=== PATIENT | female | born 1950 | race Caucasian/White ===

== ENCOUNTER 2017-07-11 07:46 | Emergency (ER) | payer MEDICARE, OTHER ==
[~2017-07-11] VITALS: Ht 172.7 cm; Wt 92.5 kg
[~2017-07-11 07:46] MED LIST: DOCU-131 PO; FERR1TAB2 PO; INSU100V12 SC; LISI5TAB7 PO; TRAM50TA2 PO
[2017-07-11 07:48] VITALS: BP 153/77
[2017-07-11] MEDS ORDERED: CLINDAMYCIN 150 MG/ML, 6ML IM ONE (10:00)
[2017-07-11] MEDS ORDERED: CLINDAMYCIN 150 MG/ML, 6ML ONE (10:12)
== END 2017-07-11 11:30 | disposition home or self-care (01) ==
LOC: ED 09:17
DX: S60.221A Contusion of right hand, initial encounter (principal); I10 Essential (primary) hypertension; E11.9 Type 2 diabetes mellitus without complications; Z87.891 Personal history of nicotine dependence; W01.0XXA Fall on same level from slipping, tripping and stumbling without subsequent striking against object, initial encounter; Y93.89 Activity, other specified; Y99.8 Other external cause status; Y92.89 Other specified places as the place of occurrence of the external cause
CPT/HCPCS: 29125; 96372

== ENCOUNTER 2017-10-12 10:55 | Inpatient (IN) | payer MEDICARE, OTHER ==
[~2017-10-12] VITALS: Ht 172.7 cm; Wt 91.4 kg
[2017-10-12] MEDS ORDERED: PRAV10TA2 PO (11:31)
[2017-10-12] MEDS ORDERED: AMLO10TA2 PO (11:32)
[2017-10-12] MEDS ORDERED: ASPIRIN 81 MG TABLET CHEW ONE (11:38)
[2017-10-12] MEDS ORDERED: NITROGLYCERIN SINGLE TAB 0.4 MG SL ONE ×2 (11:38→12:31)
[2017-10-12] MEDS: NITROGLYCERIN SINGLE TAB 0.4 MG SL PRN ×2 (11:45→12:33)
[2017-10-12] MEDS ORDERED: ASPIRIN 81 MG TABLET CHEW PO ONE (12:00)
[2017-10-12] MEDS ORDERED: SODIUM CHLORIDE FLUSH 10ML SYR IVF ONE (12:00)
[2017-10-12 12:07] LABS: BASOPHILS # (AUTO) 0.03 x10^3/uL (0-0.1); BASOPHILS % (AUTO) 0 % (0-1); EOSINOPHILS # (AUTO) 0.25 x10^3/uL (0-0.4); EOSINOPHILS % (AUTO) 3 % (1-7); LYMPHOCYTES % (AUTO) 18 % (22-44); MD NO; MEAN CORPUSCULAR HEMOGLOBIN 26.2 pg (27.0-34.8); MEAN CORPUSCULAR HGB CONC 32.9 g/dL (32.4-35.8); MEAN CORPUSCULAR VOLUME 79.6 fL (80-100); MEAN PLATELET VOLUME 8.4 fL (7.4-10.4); MONOCYTES # (AUTO) 0.43 x10^3/uL (0.2-0.8); MONOCYTES % (AUTO) 6 % (2-9); NEUTROPHILS # (AUTO) 5.28 x10^3/uL (1.8-6.8); NEUTROPHILS % (AUTO) 72 % (42-75); PLATELET COUNT 298 x10^3/uL (130-400); RED CELL DISTRIBUTION WIDTH 13.1 % (9.6-15.2)
[2017-10-12 12:14] LABS: INTERNATIONAL NORMALIZED RATIO 1.05 (0.93-1.1); PROTHROMBIN TIME 10.9 Seconds (9.6-11.5)
[2017-10-12 12:17] LABS: ALBUMIN 3.9 g/dL (3.4-5.0); ANION GAP 7 mmol/L (5-15); CALCIUM 8.7 mg/dL (8.5-10.1); CHLORIDE 111 mmol/L (98-107); CREATININE 0.99 mg/dL (0.55-1.02)
[2017-10-12] MEDS ORDERED: SODIUM CHLORIDE FLUSH 10ML SYR IVF PRN (13:00)
[2017-10-12 15:46] VITALS: BP 126/80
[2017-10-12] MEDS ORDERED: DOCUSATE 100 MG CAPSULE PO PRN (16:00)
[2017-10-12] MEDS ORDERED: hydrALAzine 20 MG/ML, 1ML IVPush PRN (16:00)
[2017-10-12] MEDS ORDERED: POLYETHYLENE GLYCOL 17 GM PACKET PO PRN (16:00)
[2017-10-12] MEDS: INSULIN LISPRO 100 UNITS/ML, PEN SQ-INSULIN SCH ×2 (16:00→21:08)
[2017-10-12] MEDS ORDERED: morphine SULFATE 10 MG/ML, 1ML IVPush PRN (16:00)
[2017-10-12] MEDS ORDERED: HYDROcodone/APAP 5/325 TABLET PO PRN (16:00)
[2017-10-12] MEDS ORDERED: ONDANSETRON 2MG/ML, 2ML IVPush PRN (16:00)
[2017-10-12 16:30] LABS: FREE T4 (FREE THYROXINE) 1.29 ng/dL (0.76-1.46); THYROID STIMULATING HORMONE 1.31 mIU/L (0.358-3.740)
[2017-10-12 16:31] LABS: HEMOGLOBIN A1C 6.6 % (4.2-6.3)
[2017-10-12] MEDS: METOPROLOL TARTRATE 25 MG TABLET PO SCH (17:45)
[2017-10-12] MEDS: ENOXAPARIN 40 MG/0.4 ML SQ SCH (17:45)
[2017-10-12] MEDS ORDERED: ZOLP5TAB6 PO (17:49)
[2017-10-12] MEDS ORDERED: GABA300C10 PO (17:49)
[2017-10-12 20:04] VITALS: BP 120/77
[2017-10-12 20:10] LABS: TROPONIN I < 0.015 ng/mL (0.000-0.045)
[2017-10-12] MEDS ORDERED: ATORVASTATIN 40 MG TABLET PO SCH (21:00)
[2017-10-12] MEDS ORDERED: ZOLPIDEM 5MG TABLET PO PRN (22:30)
[2017-10-13 02:16] VITALS: BP 105/63
[2017-10-13 05:08] LABS: TROPONIN I < 0.015 ng/mL (0.000-0.045)
[2017-10-13] MEDS: METOPROLOL TARTRATE 25 MG TABLET PO SCH ×2 (05:59→17:21)
[2017-10-13] MEDS ORDERED: ASPIRIN 81 MG TABLET EC PO SCH (06:00)
[2017-10-13 08:08] VITALS: BP 104/67
[2017-10-13] MEDS: INSULIN LISPRO 100 UNITS/ML, PEN SQ-INSULIN SCH ×3 (08:14→16:27)
[2017-10-13] MEDS ORDERED: REGADENOSON 0.4 MG/5 ML SYRINGE ONE (11:25)
[2017-10-13 15:42] VITALS: BP 131/70
[2017-10-13] MEDS: ENOXAPARIN 40 MG/0.4 ML SQ SCH (16:00)
[2017-10-13] MEDS ORDERED: METO25TA35 PO (16:38)
[2017-10-13] MEDS ORDERED: ASPI-621 PO (16:40)
== END 2017-10-13 19:00 | disposition home or self-care (01) | DRG 311 ==
LOC: ED 12:00 → EDIP 12:44 → 5SO 14:47
PROVIDERS: ADMIT Internal Medicine; ATTEND Internal Medicine
DX: I20.9 Angina pectoris, unspecified (principal); I11.0 Hypertensive heart disease with heart failure; I50.30 Unspecified diastolic (congestive) heart failure; E78.5 Hyperlipidemia, unspecified; E78.00 Pure hypercholesterolemia, unspecified; E11.9 Type 2 diabetes mellitus without complications; D50.9 Iron deficiency anemia, unspecified; I45.2 Bifascicular block; J45.909 Unspecified asthma, uncomplicated; M19.90 Unspecified osteoarthritis, unspecified site; Z79.82 Long term (current) use of aspirin; Z80.0 Family history of malignant neoplasm of digestive organs; Z85.43 Personal history of malignant neoplasm of ovary; Z86.010 Personal history of colon polyps; Z90.49 Acquired absence of other specified parts of digestive tract; Z91.14 Patient's other noncompliance with medication regimen; Z87.891 Personal history of nicotine dependence; Z90.710 Acquired absence of both cervix and uterus; Z80.7 Family history of other malignant neoplasms of lymphoid, hematopoietic and related tissues; Z85.038 Personal history of other malignant neoplasm of large intestine; Z88.0 Allergy status to penicillin; Z88.1 Allergy status to other antibiotic agents; Z79.899 Other long term (current) drug therapy
CPT/HCPCS: 36415; 71045; 78452; 80048; 82040; 82962; 83036; 83880; 84439; 84443; 84484; 85025; 85610; 85730; 93005; 93017; 93306; 99285; J1650; J2785; A9502; C9898; J1815

== ENCOUNTER → 2019-06-19 | Outpatient (CLI) | payer MEDICARE, OTHER ==
[~2019-06-19] MED LIST changes: +AMLO10TA8 PO; +AMLO5TAB4 PO; +ASPI81TA45 PO; +ATOR40TA78 PO; +EMPA10TA PO; +GABA300C10 PO; +GLIM4TAB4 PO; +INSU100I28 SC; +METO25TA35 PO; +PRAV10TA2 PO; +Vitamins; +ZOLP5TAB6 PO
[2019-06-19 09:25] LABS: ALANINE AMINOTRANSFERASE 22 U/L (12-78); ALBUMIN 3.5 g/dL (3.4-5.0); ALKALINE PHOSPHATASE 121 U/L (45-117); ANION GAP 3 mmol/L (5-15); BILIRUBIN,TOTAL 0.5 mg/dL (0.2-1.0); CALCIUM 8.6 mg/dL (8.5-10.1); CHLORIDE 109 mmol/L (98-107); CREATININE 1.12 mg/dL (0.55-1.02); TOTAL PROTEIN 7.2 g/dL (6.4-8.2)
== END | disposition home or self-care (01) ==
LOC: STAR 07:59
PROVIDERS: ATTEND Surgery
DX: Z01.818 Encounter for other preprocedural examination (principal); K43.2 Incisional hernia without obstruction or gangrene; I45.2 Bifascicular block; I51.7 Cardiomegaly
CPT/HCPCS: 36415; 80053; 93005

== ENCOUNTER 2021-01-01 12:53 | Emergency (ER) | payer MEDICARE, OTHER ==
[~2021-01-01] VITALS: Ht 172.7 cm; Wt 84.1 kg
[~2021-01-01 12:53] MED LIST changes: +AMLO-211 PO; -AMLO10TA8 PO; -GLIM4TAB4 PO; +GLIM4TAB8 PO
--- NOTE | 2021-01-01 14:23 | NUR ---
SUTURE WINDER HAND; PT TO ROOM FROM [facility]
--- NOTE | 2021-01-01 15:35 | NUR ---
DR FRANCES IN ROOM UPDATING PATIENT
--- NOTE | 2021-01-01 15:41 | NUR ---
NO BLOOD CULTURES NEEDED PER DR FRANCES
[2021-01-01] MEDS: LEVOFLOXACIN/PMX 500MG/100ML 100 ML IV ONE ×2 (15:55→17:20)
[2021-01-01] MEDS ORDERED: AZITHROMYCIN 500 MG in SODIUM CHLORIDE 0.9% 250 ML IV ONE (16:00)
--- NOTE | 2021-01-01 16:23 | NUR ---
PT RESTING IN ROOM. VS STABLE. CALL LIGHT IN PLACE. NO ACUTE DISTRESS NOTED. WILL CONTINUE TO MONITOR.
[2021-01-01] MEDS ORDERED: LEVOFLOXACIN/PMX 500MG/100ML 100 ML ONE (17:10)
[2021-01-01 17:18] VITALS: BP 108/57
--- NOTE | 2021-01-01 17:18 | NUR ---
PT EATING IN ROOM. VS STABLE. NO ACUTE DISTRESS NOTED. CALL LIGHT IN PLACE. WILL CONTINUE TO MONITOR.
== END 2021-01-01 18:44 | disposition home or self-care (01) ==
LOC: ED 18:35
DX: J15.9 Unspecified bacterial pneumonia (principal); Z20.822 Contact with and (suspected) exposure to COVID-19; R05 Cough; E11.9 Type 2 diabetes mellitus without complications; I10 Essential (primary) hypertension; J45.909 Unspecified asthma, uncomplicated; Z87.891 Personal history of nicotine dependence
CPT/HCPCS: 71045; 96365; 96367; 99284; J0456; J1956; J7050; U0003; U0005